=== PATIENT | female | born 1960 | race Caucasian/White ===

== ENCOUNTER → 2023-11-02 | Outpatient (CLI) | payer OTHER ==
[~2023-11-02] MED LIST: CIPROFLOXACIN500 MG PO; FLOMAX0.4 MG PO; HYDROCODONE BIT1 T11 PO; MOTRIN800 MG PO
== END | disposition home or self-care (01) ==
LOC: LAB 16:46
PROVIDERS: ATTEND Nurse Practitioner Family
DX: R30.0 Dysuria (principal)

== ENCOUNTER 2024-02-05 19:02 | Emergency (ER) | payer OTHER ==
[~2024-02-05] VITALS: Ht 157.4 cm; Wt 70.3 kg
[2024-02-05 19:27] VITALS: BP 136/90
[2024-02-05] MEDS ORDERED: LISINOPRIL5 MG PO (19:28)
[2024-02-05] MEDS ORDERED: LEVOXYL75 MCG PO (19:29)
[2024-02-05 19:56] LABS: BILIRUBIN Negative (Negative); BLOOD 2+ (Negative); CLARITY Cloudy (Clear); COLOR Yellow (Yellow); GLUCOSE Negative (Negative); KETONE Trace (Negative); LEUKO ESTERASE Negative (Negative); NITRITE Negative (Negative); PH 5.5 (4.5-8.0); SPECIFIC GRAVITY >= 1.030 (1.001-1.030)
[2024-02-05] MEDS ORDERED: Ondansetron Hydrochloride 4 MG TAB SL ONE ×2 (20:00→22:20)
[2024-02-05 20:24] LABS: BACTERIA 1+; RBC 16-20 rbc/hpf (0-2); WBC 0-2 wbc/hpf (0-5)
[2024-02-05] MEDS ORDERED: Ketorolac Tromethamine 60 MG/2 ML VIAL IM ONE (21:30)
[2024-02-05] MEDS ORDERED: Tamsulosin Hydrochloride 0.4 MG CAP PO ONE (21:30)
[2024-02-05] MEDS ORDERED: HYDROmorphONE Hydrochloride 1 MG/ML SYR IV ONE (22:45)
[2024-02-05] MEDS ORDERED: Acetaminophen/Hydrocodone 5 MG/325 MG TABLET PO ONE (23:30)
[2024-02-05] MEDS ORDERED: FLOMAX0.4 MG PO (23:31)
[2024-02-05] MEDS ORDERED: Ondansetron4 MG PO (23:31)
[2024-02-05] MEDS ORDERED: HYDROCODONE-AC1 EAC1 PO (23:31)
== END 2024-02-05 23:54 | disposition home or self-care (01) ==
LOC: ED 19:02
PROVIDERS: Internal Medicine
DX: N13.2 Hydronephrosis with renal and ureteral calculous obstruction (principal); R11.2 Nausea with vomiting, unspecified

== ENCOUNTER → 2024-02-28 | Outpatient (CLI) | payer OTHER ==
[~2024-02-28] MED LIST changes: +HYDROCODONE-AC1 EAC1 PO; +LEVOXYL75 MCG PO; +LISINOPRIL5 MG PO; +Ondansetron4 MG PO
== END | disposition home or self-care (01) ==
LOC: US 12:07
PROVIDERS: ATTEND Urology
DX: N20.0 Calculus of kidney (principal)